=== PATIENT | female | born 1970 | race Caucasian/White ===

== ENCOUNTER 2018-08-28 05:41 | Observation (INO) ==
[2018-08-26 09:09] LABS: URINE SOURCE VOIDED
--- NOTE | 2018-08-26 09:13 | Diag Imaging Result Doc PS360 ---
EXAM: CHEST-2 VIEWS HISTORY: PAT TECHNIQUE: Chest two views COMPARISON: None. FINDINGS: The lungs are well expanded. The heart is not enlarged. The vessels are not distended. There are no infiltrates. No pleural effusions. Mild scoliosis. IMPRESSION: No acute abnormality. Electronically signed by Reece Westfall 08/26/2018 9:11 AM
[2018-08-26 09:15] LABS: BASO# 0.07 X1000 (0.0-0.2); BASO% 0.8 % (0.0-0.8); EOS# 0.16 X1000 (0.0-0.7); EOS% 1.9 % (0.0-10.0); HEMATOCRIT 47.1 % (37.0-47.0); IMM GRAN# 0.02 X1000 (0.0-0.04); IMM GRAN% 0.2 % (0.0-0.5); LYMPH# 2.32 X1000 (1.2-3.4); LYMPH% 27.4 % (20.5-51.1); MCH 29.5 PG (27-31); MCV 86.7 FL (81-99); MONO# 0.78 X1000 (0.11-0.59); MONO% 9.2 % (1.7-9.3); MPV 10.7 FL (7.4-10.4); NEUT# 5.13 X1000 (1.4-6.5); NEUT% 60.5 % (42.2-75.2); PLT 277 X1000 (130-400); RBC 5.43 XMIL (4.2-5.4); RDW 12.6 % (11.5-14.5); WBC 8.48 X1000 (4.8-10.8)
[2018-08-26 09:18] LABS: BILIRUBIN URINE NEGATIVE (NEGATIVE); BLOOD URINE NEGATIVE (NEGATIVE); COLOR STRAW; GLUCOSE URINE NEGATIVE (NEGATIVE); KETONE URINE NEGATIVE (NEGATIVE); LEUKOCYTES URINE NEGATIVE (NEGATIVE); NITRITE URINE NEGATIVE (NEGATIVE); PROTEIN URINE NEGATIVE (NEGATIVE); TURBIDITY URINE CLEAR (CLEAR); UR EPITHELIAL CELLS <10 /HPF (<10); URINE BACTERIA NEGATIVE /HPF; URINE RBC <10 /HPF (<10); URINE WBC <10 /HPF (<10); UROBILINOGEN URINE NORMAL (NORMAL)
--- NOTE | 2018-08-26 09:30 | EKG Report ---
Test Performed on : 08/26/2018 08:42:40 AM Test Reason : pat Blood Pressure : / mmHG Vent. Rate : 066 BPM Atrial Rate : 066 BPM P-R Int : 148 ms QRS Dur : 072 ms QT Int : 410 ms P-R-T Axes : 072 055 015 degrees QTc Int : 429 ms Normal sinus rhythm. Normal ECG No previous ECGs available Confirmed by Yuan DING, Andi ([id number]) on 08/26/2018 6:20:33 PM
[2018-08-26 09:44] LABS: AGAP 10; ALB/GLOB RATIO 1.7; ALBUMIN 4.6 g/dL (3.5-5.0); ALKALINE PHOSPHATASE 46 U/L (32-104); BUN 10 mg/dL (8-22); CALCIUM 9.8 mg/dL (8.8-10.2); CHLORIDE 100 mmol/L (98-107); COSMO 274; CREATININE 0.7 mg/dL (0.5-0.9); ESTIMATED GFR > 60; GLUCOSE 91 mg/dL (70-104); GOT 14 U/L (10-30); GPT 10 U/L (10-36); POTASSIUM 4.4 mmol/L (3.5-5.1); SODIUM 138 mmol/L (136-145); TCO2 28 mmol/L (25-35); TOTAL BILIRUBIN 0.47 mg/dL (0.20-1.00); TOTAL PROTEIN 7.3 g/dL (6.3-8.3)
[2018-08-28] MEDS ORDERED: REGLAN ONE (06:22)
[2018-08-28] MEDS ORDERED: PEPCID ONE (06:22)
[2018-08-28] MEDS ORDERED: LR 1,000 ML ONE (06:22)
[2018-08-28] MEDS ORDERED: KEFZOL 1 GM/D5W 1 GM/50 ML IVPB ONE (06:22)
[2018-08-28] MEDS ORDERED: DIPRIVAN 1% ONE (07:02)
[2018-08-28] MEDS ORDERED: FENTANYL ONE (07:03)
[2018-08-28] MEDS ORDERED: XYLOCAINE-MPF 2% ONE (07:04)
[2018-08-28] MEDS ORDERED: QUELICIN (DOSE) ONE (07:04)
[2018-08-28] MEDS ORDERED: NUPERCAINAL ONE (07:35)
[2018-08-28] MEDS ORDERED: ZOFRAN ONE (08:07)
[2018-08-28] MEDS ORDERED: DECADRON ONE (08:07)
[2018-08-28] MEDS ORDERED: TORADOL ONE (08:07)
[2018-08-28] MEDS ORDERED: D5 1/2 NS 1,000 ML ONE (08:53)
[2018-08-28] MEDS: DILAUDID ONE ×2 (08:56→09:06)
[2018-08-28] MEDS ORDERED: NARCAN IV PRN (09:00)
[2018-08-28] MEDS ORDERED: DILAUDID-HP 30 MG in NS 27 ML IV PRN (09:00)
[2018-08-28] MEDS ORDERED: LR 1,000 ML IV SCH (09:00)
[2018-08-28] MEDS ORDERED: ZOFRAN IV PRN ×2 (09:00→17:10)
[2018-08-28] MEDS ORDERED: NORCO-10 ONE (09:12)
--- NOTE | 2018-08-28 09:31 | OPERATIVE NOTE ---
PROCEDURE DATE: 08/28/2018 PREOPERATIVE DIAGNOSIS: Prolapsing external and internal hemorrhoids. POSTOPERATIVE DIAGNOSIS: Prolapsing external and internal hemorrhoids. PROCEDURE: Stapled hemorrhoidectomy. PROCEDURE IN DETAIL: The patient was brought to the operating room. After satisfactory induction of IV and endotracheal anesthesia, she was placed in the prone lucius-knife position. Her buttocks were taped and spread. Rectal dilation was performed revealing the hemorrhoids. There was a tiny fissure at the 6 o'clock position. A pursestring of 2-0 Prolene was placed 5 cm inside the anus. This was checked and felt to be satisfactory. The anvil of the stapling device was placed proximal to the pursestring. The pursestring was subsequently tied. The instrument was hooked up, wound down. Vaginal examination revealed no encroachment on the vagina. The system was held for 1 minute, fired, held for another minute and then removed. The staple line appeared to be hemostatic and satisfactory at 360 degrees. The Avitene butt plug was subsequently placed along with sterile dressing. She was subsequently turned back onto her back, awakened, and extubated in the operating room and transferred to recovery. ESTIMATED BLOOD LOSS: Less than 10 mL. cc: Hakeem Campoverde MD
[2018-08-28] MEDS ORDERED: NORCO-10 PO PRN (10:38)
[2018-08-28] MEDS ORDERED: TYLENOL PO PRN (17:08)
[2018-08-28] MEDS: D5 1/2 NS 1,000 ML IV SCH ×2 (19:57→22:24)
[2018-08-28] MEDS: PERIDEX MT SCH ×2 (19:58→22:24)
[2018-08-29] MEDS: D5 1/2 NS 1,000 ML IV SCH (06:00)
[2018-08-29 07:23] VITALS: BP 108/66
[2018-08-29] MEDS ORDERED: CULTURELLE PO SCH (09:00)
== END 2018-08-29 11:21 | disposition home or self-care (01) ==
LOC: OPS 05:41 → 4N 05:41 → PAT 05:41
PROVIDERS: ADMIT Surgery; ATTEND Surgery
CPT/HCPCS: 71020; 71046; 80053; 81001; 81025; 85025; 88304; 93005; 93010; 94760; 94799; A9270; J0330; J0690; J1100; J1170; J1885; J2405; J3010; J7120

== ENCOUNTER 2018-10-09 05:51 | Day surgery (SDC) ==
[2018-10-09] MEDS ORDERED: PEPCID ONE (06:52)
[2018-10-09] MEDS ORDERED: KEFZOL 1 GM/D5W 1 GM/50 ML IVPB ONE (06:52)
[2018-10-09] MEDS ORDERED: LR 1,000 ML ONE (06:52)
[2018-10-09] MEDS ORDERED: VALIUM ONE (06:52)
[2018-10-09] MEDS ORDERED: ROBINUL ONE (07:14)
[2018-10-09] MEDS ORDERED: FENTANYL ONE (07:14)
[2018-10-09] MEDS ORDERED: QUELICIN (DOSE) ONE (07:14)
[2018-10-09] MEDS ORDERED: VERSED ONE (07:15)
[2018-10-09] MEDS ORDERED: DIPRIVAN 1% ONE (07:15)
[2018-10-09] MEDS ORDERED: XYLOCAINE-MPF 2% ONE (07:15)
[2018-10-09] MEDS ORDERED: MARCAINE 0.25% PF/EPI 1:200,000 ONE (07:49)
[2018-10-09] MEDS ORDERED: NUPERCAINAL ONE (07:50)
[2018-10-09] MEDS ORDERED: DECADRON ONE (08:18)
[2018-10-09] MEDS ORDERED: ZOFRAN ONE (08:18)
[2018-10-09] MEDS ORDERED: DILAUDID PCA VIAL ONE (08:59)
[2018-10-09] MEDS ORDERED: NARCAN 0.4 MG in LR 1,000 ML IV PRN (09:00)
[2018-10-09] MEDS ORDERED: ZOFRAN IV PRN (09:00)
[2018-10-09] MEDS ORDERED: LR 1,000 ML IV SCH (09:00)
[2018-10-09] MEDS ORDERED: NARCAN IV PRN (09:00)
[2018-10-09] MEDS ORDERED: DILAUDID PCA VIAL IV PRN (09:00)
[2018-10-09] MEDS: DILAUDID ONE ×2 (09:00→09:04)
[2018-10-09] MEDS ORDERED: D5 1/2 NS 1,000 ML ONE (09:14)
[2018-10-09] MEDS: D5 1/2 NS 1,000 ML IV SCH (10:50)
--- NOTE | 2018-10-09 13:15 | OPERATIVE NOTE ---
PROCEDURE DATE: 10/09/2018 PREOPERATIVE DIAGNOSIS: History of recent stapled hemorrhoidectomy with continued pain. POSTOPERATIVE DIAGNOSIS: Dorsal fissure. PROCEDURE: Exam under anesthesia with fissurectomy and sphincterotomy. SURGEON: Hakeem Campoverde MD DESCRIPTION OF PROCEDURE: The patient was brought to the operating room, after satisfactory induction of IV and endotracheal anesthesia, she was placed in the prone jackknife position. Her buttocks were taped and spread. Examination revealed the staple line from the previous stapled hemorrhoidectomy to be satisfactory with no evidence of stenosis and a satisfactory postop hemorrhoid procedure. Examination further revealed a dorsal fissure. An area on the 12 o'clock position as well as the 9 o'clock position was infiltrated with 10 mL of Marcaine with epinephrine. A standard fissurectomy was performed hemostasis was obtained by electrocautery. The [id number] anastomosis was performed with a running locking 2-0 Vicryl suture. A lateral sphincterotomy was subsequently performed at the 9 o'clock position with division of about a half of the external sphincteric muscles. Again, hemostasis was obtained by electrocautery and a [id number] anastomosis was performed with interrupted running locking 2-0 Vicryl suture. On completion, there was no bleeding or expanding hematoma. An Avitene butt plug was placed with Americaine ointment. Sterile dressing was applied. She was subsequently turned back onto her back, awakened, and extubated in the operating room and transferred to recovery. ESTIMATED BLOOD LOSS: About 10 mL. cc: Hakeem Campoverde MD
[2018-10-09] MEDS ORDERED: TYLENOL PO PRN (14:26)
[2018-10-09] MEDS: ZOFRAN IV PRN (22:07)
[2018-10-09] MEDS: NORCO-10 PO PRN (22:07)
[2018-10-09] MEDS: COLACE PO SCH (22:08)
[2018-10-09] MEDS: PERIDEX MT SCH (22:08)
[2018-10-10] MEDS: D5 1/2 NS 1,000 ML IV SCH (01:44)
[2018-10-10] MEDS: NORCO-10 PO PRN (03:47)
[2018-10-10] MEDS: ZOFRAN IV PRN (03:47)
[2018-10-10] MEDS ORDERED: DILAUDID IV ONE (05:05)
[2018-10-10] MEDS ORDERED: FLOMAX PO SCH (09:00)
[2018-10-10] MEDS: COLACE PO SCH (10:03)
[2018-10-10] MEDS: PERIDEX MT SCH (10:03)
[2018-10-10 10:58] VITALS: BP 128/76
== END 2018-10-10 11:36 | disposition home or self-care (01) ==
LOC: OR 05:51 → 4N 05:51 → OR 10-10 11:36
PROVIDERS: ATTEND Surgery
CPT/HCPCS: 88304; 94760; 94799; A9270; J0330; J0690; J1100; J1170; J2250; J2405; J3010; J7120